=== PATIENT | male | born 1990 | race Caucasian/White ===

== ENCOUNTER 2022-06-14 13:36 | Emergency (ER) | payer SELFPAY | END 2022-06-14 14:51 | disposition home or self-care (01) | LOC: CSHERS 13:36 | DX: M25.532 Pain in left wrist (principal); F17.290 Nicotine dependence, other tobacco product, uncomplicated ==

== ENCOUNTER 2024-10-03 11:51 | Emergency (ER) | payer SELFPAY | END 2024-10-03 14:04 | LOC: CSHERS 11:51 | DX: J00 Acute nasopharyngitis [common cold] (principal); R05.9 Cough, unspecified; I10 Essential (primary) hypertension; F17.210 Nicotine dependence, cigarettes, uncomplicated | CPT/HCPCS: 87426; 99283 ==